=== PATIENT | female | born 1945 | race Hispanic/Latino ===

== ENCOUNTER 2017-08-10 06:46 | Day surgery (SDC) | payer BC, MEDICARE ==
[2017-08-08 13:07] VITALS: BMI 21.0
[2017-08-10] MEDS ORDERED: Lidocaine 2% Inj (20ml) ONE (07:29)
[2017-08-10] MEDS ORDERED: Iohexol 350mgl/ml 50 ML ONE (07:30)
[2017-08-10] MEDS ORDERED: Iodixanol 320 MG/ML 200 ML BOTTLE IV ONE (07:30)
[2017-08-10] MEDS ORDERED: Midazolam 2 MG/2 ML VIAL ONE (07:46)
[2017-08-10 08:00] VITALS: O2SAT 94
[2017-08-10] MEDS ORDERED: Nitroglycerin 50mg in D5W 50 MG/250 ML BOTTLE IV ONE (08:22)
[2017-08-10] MEDS ORDERED: Iodixanol 320 MG/ML 100 ML BOTTLE IV ONE (08:31)
[2017-08-10] MEDS ORDERED: Sodium Chloride 0.9% 1,000 ML IV SCH (09:00)
[2017-08-10] MEDS ORDERED: Morphine 2 mg/ml ISec IVP PRN (09:05)
--- NOTE | 2017-08-10 10:04 | CARDCATH ---
PROCEDURE DATE: 08/10/2017 PROCEDURE: 1. Right and left heart catheterization. 2. Selective left and right coronary angiography. 3. Percutaneous coronary intervention of left anterior descending and diagonal branch with drug-eluting stents. 4. Right femoral arteriography. 5. Angio-Seal deployment. 6. Mynx deployment in right femoral vein access site. HISTORY: This is a 72-year-old woman with longstanding history of tobacco abuse and COPD, who has had worsening exertional dyspnea. An echocardiogram revealed evidence of significant LV dysfunction and catheterization was advised. Exertional dyspnea. Multiple cardiac risk factors. INDICATIONS: As above. FINDINGS: HEMODYNAMICS: 1. The right heart pressures were as follows. The RA pressure was 3. Right RV pressure was 33/3. The PA pressure was 33/14. The pulmonary capillary wedge pressure was 14. 2. The cardiac output and cardiac index by thermodilution method were 4.6 L/minute and 2.8 L/minute per m2 respectively. 3. The aortic pressure was 120/70 with a left ventricular pressure of 120/16. CORONARY ANATOMY: 1. The left mainstem had mild proximal tapering. 2. The left anterior descending artery had a 50% stenosis just after the takeoff of the first diagonal branch. In the midportion of the LAD, there was a hazy 80% stenosis present. The distal vessel was of small to moderate size. 3. The first diagonal branch was a large vessel and supplied the majority of the anterolateral wall. This had a focal 80% stenosis in its proximal segment. 4. The left circumflex artery was a fairly small vessel giving rise to one small obtuse marginal branch. This had a 50% lesion in the midportion. 5. The right coronary artery was large and dominant. There was a 40% lesion in the midportion of the vessel. The distal branches had evidence of mild diffuse disease. A left ventriculogram was performed with hand injection only in the CANELA projection. This revealed evidence of moderate anterolateral hypokinesis with normal ejection fraction of 35%. There was no aortic valve gradient noted on catheter pullback. Mitral regurgitation was not assessed. CORONARY INTERVENTION: Attempted PCI of the LAD and diagonal branches was then performed. A 3.5 EBU-guide catheter was utilized and 4000 units of intravenous heparin was administered. The ACT was 360 seconds during the procedure. The lesion in the LAD was successfully crossed with the use of a Harrison wire. Following this, the lesion was primarily stented with the placement of a 2.5 x 15 mm Resolute [place] drug-eluting stent. This was inflated to 12 atmospheres for 45 seconds. There was 0% residual stenosis following the stent deployment. Intracoronary nitroglycerin was infused. TEE grade 3 flow was present before and after the intervention. Just prior to the stent, there was a tubular 40% stenosis, which was left untreated. Following this, the wire was withdrawn and advanced into the large diagonal branch. The lesion in the diagonal branch was then treated with primary placement of a 2.75 x 12 mm Resolute [place] stent. This was inflated to 12 atmosphere for 40 seconds. There was again 0% residual stenosis at the site of the vessel. There was no impingement of flow into the LAD after stent deployment. Intracoronary nitroglycerin was infused again. RIGHT FEMORAL ARTERIOGRAPHY: A right femoral arteriogram was performed in the CANELA projection. This revealed no evidence of significant disease and appropriate level of arterial puncture. The puncture site was then closed with deployment of an Angio-Seal device. The femoral vein puncture site was closed with deployment of a Mynx device. CONCLUSION: 1. Severe left anterior descending and diagonal disease. 2. Mild to moderate right coronary artery and circumflex disease. 3. Moderately reduced left ventricular systolic function. 4. Successful percutaneous coronary intervention of left anterior descending and diagonal as described above. RECOMMENDATIONS: Given the above findings, aspirin and Plavix therapy will be continued for at least 1 year. Statin therapy should be added to her regimen. If tolerated, beta deb should be added as well. A followup assessment of her left ventricular function in 3 months' time is advisable. If ejection fraction remains significantly low, prophylactic ICD implant may need to be considered. Risk factor control was advised and continued smoking abstinence advised as well. Chidi Kraft MD cc: Jamey Webber MD; Leonardo Malagon MD. MTDD
[2017-08-10 12:34] VITALS: RESP 18
[2017-08-10 16:37] VITALS: TEMP 98.2
[2017-08-10 16:49] VITALS: BP 126/55; PULSE 82
--- NOTE | 2017-08-11 08:49 | CARD ---
APPROVED REPORT EKG Measurement Heart [id number] <Conclusion> Normal sinus rhythm Left bundle branch block No change
== END 2017-08-10 17:06 | disposition home or self-care (01) ==
LOC: CATH 06:46 → 2RSO 08:59 → CATH 17:06
PROVIDERS: ATTEND Internal Medicine Cardiovascular Disease
DX: I25.10 Atherosclerotic heart disease of native coronary artery without angina pectoris (principal); J44.9 Chronic obstructive pulmonary disease, unspecified; Z87.891 Personal history of nicotine dependence
CPT/HCPCS: 36415; 85175; 86850; 86900; 93005; 93458; 99152; 99153; C1760 ×2; C1769 ×2; C1874 ×2; C1887; C1894; C2629; C9600; C9601; J1644 ×2; J2250; J3010; J7030; J7040; Q9966; Q9967 ×2